=== PATIENT | male | born 1955 | race Caucasian/White ===

== ENCOUNTER → 2016-06-28 | Outpatient (CLI) | payer BC ==
[~2016-06-28] MED LIST: ASPI-435 PO; FAMO10TA16 PO; GLIP2.5T11 PO; HYDR25TA4 PO; LISI40TA PO; METF-384 PO; SILD100T PO; SIMV20TA5 PO; SITA1TAB27 PO; TAMS0.4C38 PO
[2016-06-28 13:31] VITALS: BP 149/88; PULSE 69; TEMP 36.6; O2SAT 99
--- NOTE | 2016-06-28 14:47 | Radiation Oncology Follow-Up ---
Radiation Oncology Follow-Up Date of Visit Jun 28, 2016. Reason For Visit Annual follow-up Radiation Completion Date 08/11/2013 Diagnosis (1) Prostate cancer Status: Resolved Onset Date: 10/17/2012 Location: both lobes of the prostate Histology Subtype: adenocarcinoma Stage: ll (B) Permanent Comment: Rising PSA, pretreatment PSA 5.65, clinical stage TIC Status post ultrasound-guided biopsy Biopsy stage TIIc, [place] 3+3 Status post seed implant with cesium 131 08/11/2013, 90 seeds placed, dose 11, 500 cGy Last Edited By: Hallie Stafford on Jun 14, 2015 13:26 Interim History He is been doing well over this past year from urinary standpoint. His AUA score was 3. He does continue to take the tamsulosin daily. He notes that if he forgets to take a pill he will have urinary difficulty. He therefore wishes to continue on the medication. He completed expanded prostate cancer index composite for clinical practice and gave a score of 0 of 12 in urinary incontinence symptoms. He a score of one of 12 and urinary irritation symptoms. He was store of 0 of 12 bowel symptoms. He gave a score 1 of 12 and sexual symptoms. He gave a score 0 12 in hormonal vitality symptoms. His total was 2 of 60. He had a be a recheck PSA 12/09/2015 and that was 0.325. Allergies Coded Allergies: No Known Allergies (Unverified , 08/11/13) Home Medications Scheduled Aspirin (Aspirin 81), 81 MG PO DAILY Famotidine (Pepcid Ac), 10 MG PO BID Glipizide (Glipizide Er), 1 TAB PO DAILY Hydrochlorothiazide (Hctz), 25 MG PO DAILY Lisinopril (Zestril), 40 MG PO DAILY Metformin Hcl (Glucophage), 1,000 MG PO BID Sildenafil Citrate (Viagra), 100 MG PO PRN Simvastatin (Zocor), 20 MG PO QPM Sitagliptin (Januvia), 100 MG PO DAILY Tamsulosin Hcl (Flomax), 1 CAP PO DAILY Review of Systems Gastrointestinal: Symptoms: WNL Oral: Symptoms: No Problems Respiratory: Symptoms: WNL Urinary: Symptoms: WNL Comments: nocturia 1 - 2 times Skin: Symptoms: No Problems Physical Exam Vital Signs Date Time Temp Pulse Resp B/P Pulse Ox O2 Delivery O2 Flow Rate FiO2 06/28/16 13:31 36.6 69 18 149/88 99 Pain: Side: Bilateral Pain Location: None Patient Pain Scale: 0 - 10 Initial Pain Intensity: 0.0 Fatigue: None General Appearance: no apparent distress Eyes: normal inspection, EOMI ENT: normal ENT inspection, hearing grossly normal Neck: no adenopathy, thyroid normal Respiratory/Chest: lungs clear, no respiratory distress, no accessory muscle use Cardiovascular: regular rate, rhythm, no gallop, no murmur Abdomen: non tender, soft Anal / Rectum: Minimal perianal skin irritation. Normal sphincter tone. No rectal masses no rectal bleeding. Neurologic/Psychiatric: no motor/sensory deficits, alert, normal mood/affect Skin: warm/dry, no rash Lymphatic: no adenopathy Laboratory Studies PSA is pending. Assessment & Plan A PSA was drawn today prior to examination. She'll be notified as to results. Continue regular follow-up with his primary care physician and Dr. Salinas. We asked him to return to our office in 1 year. He continues on the tamsulosin. We'll continue to refill his tamsulosin. He'll be seeing Dr. Salinas in 6 months. He may call if he has no questions or concerns in the interim. Total Time In Follow-Up I spent 20 minutes speaking to the patient performing examination. I spent 15 minutes reviewing information in completing this note. Copy To Kevin Salinas MD; Jeronimo Cross
== END | disposition home or self-care (01) ==
LOC: C.ONC 13:20
PROVIDERS: ATTEND Physician Assistant Medical
DX: Z08 Encounter for follow-up examination after completed treatment for malignant neoplasm (principal); Z92.3 Personal history of irradiation; Z85.46 Personal history of malignant neoplasm of prostate

== ENCOUNTER → 2016-12-07 | Outpatient (CLI) | payer BC ==
[~2016-12-07] MED LIST changes: +FAMO10TA10 PO; -FAMO10TA16 PO
== END | disposition home or self-care (01) ==
LOC: C.LABMFLN 08:06
PROVIDERS: ATTEND Urology
DX: C61 Malignant neoplasm of prostate (principal)